=== PATIENT | male | born 1995 | race Caucasian/White ===

== ENCOUNTER 2017-05-19 21:54 | Inpatient (IN) | payer OTHER ==
[2017-05-19 22:51] LABS: Hematocrit 38 % (35-47); Hemoglobin 13.1 g/dl (12.0-16.0); Mean Corpuscular HGB Conc 35 g/dl (31-36); Mean Corpuscular Hemoglobin 30 pg (27-31); Mean Corpuscular Volume 88 fL (80-97); Mean Platelet Volume 7 um3 (7.4-10.4); Red Blood Count 4.33 10^6/ul (4.0-5.4); Red Cell Distribution Width 12 % (10.5-15); White Blood Count 9.4 10^3/ul (3.5-10.8)
[2017-05-19 23:06] LABS: ALT 13 U/L (7-52); AST 13 U/L (13-39); Albumin 4.1 g/dL (3.2-5.2); Alkaline Phosphatase 43 U/L (34-104); Anion Gap 8 mmol/L (2-11); BUN/Creatinine Ratio 20.9 (8-20); Blood Urea Nitrogen 19 mg/dL (6-24); CO2 Carbon Dioxide 23 mmol/L (22-32); Calcium 9.2 mg/dL (8.6-10.3); Chloride 104 mmol/L (101-111); EGFR African American 101.4 (>60); EGFR Non-African American 78.8 (>60); Globulin 2.6 g/dL (2-4); Glucose 94 mg/dL (70-100); Potassium 3.6 mmol/L (3.5-5.0); Sodium 135 mmol/L (133-145); Total Protein 6.7 g/dL (6.4-8.9)
[2017-05-19 23:10] LABS: Urine Bilirubin Negative (Negative); Urine Glucose Negative (Negative); Urine Nitrite Negative (Negative)
[2017-05-19 23:20] LABS: Benzodiazepine Urine Screen None Detected (None Detect)
[2017-05-19 23:23] LABS: Acetaminophen < 15 mcg/mL; Alcohol < 10 mg/dL (<10); Salicylate < 2.50 mg/dL (<30)
[2017-05-19 23:38] LABS: TSH (Thyroid Stimulating Horm) 1.03 mcIU/mL (0.34-5.60)
[2017-05-20] MEDS ORDERED: LORazepam TAB(*) 1 MG PO PRN (05:20)
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
[2017-05-20] MEDS ORDERED: Al Hydrox/Mg Hydrox/Simet LIQ* 30 ML UDC PO PRN (12:10)
[2017-05-20] MEDS ORDERED: Acetaminophen TAB* 325 MG PO PRN (12:10)
[2017-05-20] MEDS ORDERED: hydrOXYzine HCL TAB* 50 MG PO PRN (12:13)
[2017-05-20] MEDS: Citalopram TAB* 20 MG PO SCH (17:39)
[2017-05-21] MEDS: Citalopram TAB* 20 MG PO SCH (09:40)
[2017-05-21] MEDS ORDERED: Influenza VAC *QUAD* 2017-18* 0.5 ML SYRINGE IM ONE (13:00)
[2017-05-21] MEDS: Spironolactone TAB* 25 MG PO SCH (20:16)
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
[2017-05-22 07:59] VITALS: BP 128/77
[2017-05-22] MEDS: Citalopram TAB* 20 MG PO SCH (08:08)
[2017-05-22] MEDS: Spironolactone TAB* 25 MG PO SCH (08:08)
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
== END 2017-05-22 12:10 | disposition home or self-care (01) | DRG 880 ==
LOC: ED 21:54 → BSU 05-20 16:36
PROVIDERS: ADMIT Psychiatry & Neurology Psychiatry; ATTEND Psychiatry & Neurology Psychiatry
DX: F43.0 Acute stress reaction (principal); F32.9 Major depressive disorder, single episode, unspecified; F41.1 Generalized anxiety disorder; F34.1 Dysthymic disorder; Z81.8 Family history of other mental and behavioral disorders; Z82.49 Family history of ischemic heart disease and other diseases of the circulatory system; Z83.3 Family history of diabetes mellitus; Z23 Encounter for immunization
CPT/HCPCS: 36415; 80053; 80307; 80320; 80329; 81003; 84443; 84702; 85025; 90686; 99222; 99238; A9270-GY; G0480